=== PATIENT | male | born 1980 | race Caucasian/White ===

== ENCOUNTER 2017-08-08 08:05 | Emergency (ER) | payer SELFPAY ==
[~2017-08-08] VITALS: Ht 188 cm; Wt 114.6 kg
[~2017-08-08 08:05] MED LIST: GABA300C10 PO; ZOLP10TA PO
[2017-08-08 08:07] VITALS: BP 148/80
[2017-08-08] MEDS ORDERED: MELA2.5T PO (08:29)
[2017-08-08] MEDS ORDERED: BUDE10.22 INH (08:30)
[2017-08-08] MEDS ORDERED: TIOT18CA INH (08:30)
[2017-08-08] MEDS ORDERED: ALBU18HF INH (08:32)
[2017-08-08] MEDS ORDERED: methylPREDNISolone SOD SUCC 125 MG/2 ML ONE (09:26)
[2017-08-08] MEDS ORDERED: SODIUM CHLORIDE FLUSH 10ML SYR IVF ONE (09:30)
[2017-08-08] MEDS ORDERED: methylPREDNISolone SOD SUCC 125 MG/2 ML IVP ONE (09:30)
[2017-08-08] MEDS ORDERED: ALBUTEROL/IPRATROPIUM 2.5MG/0.5MG, 3 ML NPPB ONE (09:30)
[2017-08-08] MEDS ORDERED: ALBUTEROL/IPRATROPIUM 2.5MG/0.5MG, 3 ML ONE (09:40)
== END 2017-08-08 11:07 | disposition home or self-care (01) ==
LOC: ED 10:26
DX: J44.1 Chronic obstructive pulmonary disease with (acute) exacerbation (principal); B34.9 Viral infection, unspecified; Z87.891 Personal history of nicotine dependence
CPT/HCPCS: 71010; 93005; 94640; 96374; 99284; J2930; J7620

== ENCOUNTER 2017-11-21 09:12 | Emergency (ER) | payer SELFPAY ==
[~2017-11-21] VITALS: Ht 188 cm; Wt 99.7 kg
[~2017-11-21 09:12] MED LIST changes: +ALBU18HF INH; +BUDE10.22 INH; +MELA2.5T PO; +TIOT18CA INH
[2017-11-21 10:56] VITALS: BP 122/80
== END 2017-11-21 10:59 | disposition home or self-care (01) ==
LOC: ED 10:34
DX: S83.411A Sprain of medial collateral ligament of right knee, initial encounter (principal); Z87.891 Personal history of nicotine dependence; X50.0XXA Overexertion from strenuous movement or load, initial encounter; Y93.89 Activity, other specified; Y92.89 Other specified places as the place of occurrence of the external cause; Y99.8 Other external cause status
CPT/HCPCS: 29530; 99284

== ENCOUNTER 2018-12-13 16:25 | Emergency (ER) | payer MEDICAID ==
[~2018-12-13] VITALS: Ht 188 cm; Wt 111.4 kg
[2018-12-13 16:42] VITALS: BP 146/88
--- NOTE | 2018-12-13 18:03 | NUR ---
Patient/Caregiver given discharge instructions and they have confirmed that they understand the instructions. Patient ambulatory with steady gait.
== END 2018-12-13 18:04 | disposition home or self-care (01) ==
LOC: ED 17:30
DX: S62.346A Nondisplaced fracture of base of fifth metacarpal bone, right hand, initial encounter for closed fracture (principal); J44.9 Chronic obstructive pulmonary disease, unspecified; G62.9 Polyneuropathy, unspecified; W00.0XXA Fall on same level due to ice and snow, initial encounter; Y93.89 Activity, other specified; Y92.410 Unspecified street and highway as the place of occurrence of the external cause; Y99.8 Other external cause status
CPT/HCPCS: 29125; 99283

== ENCOUNTER 2020-08-13 09:50 | Emergency (ER) | payer SELFPAY ==
[~2020-08-13] VITALS: Ht 182.9 cm; Wt 116.0 kg
--- NOTE | 2020-08-13 09:54 | NUR ---
CALLED FOR TRIAGE, NO ANSWER
[2020-08-13] MEDS ORDERED: ALBUTEROL/IPRATROPIUM 2.5MG/0.5MG, 3 ML ONE (10:29)
[2020-08-13] MEDS ORDERED: ALBUTEROL/IPRATROPIUM 2.5MG/0.5MG, 3 ML NPPB SCH (10:30)
[2020-08-13 10:50] LABS: BASOPHILS % (AUTO) 0 % (0-1); EOSINOPHILS % (AUTO) 1 % (1-7); LYMPHOCYTES % (AUTO) 11 % (22-44); MEAN CORPUSCULAR HEMOGLOBIN 29.7 pg (27.5-34.5); MEAN CORPUSCULAR HGB CONC 33.1 g/dL (33.2-36.2); MEAN PLATELET VOLUME 7.5 fL (7.4-10.4); MONOCYTES % (AUTO) 5 % (2-9); NEUTROPHILS % (AUTO) 83 % (42-75); PLATELET COUNT 334 x10^3/uL (130-400); RED BLOOD COUNT 4.99 x10^6/uL (4.38-5.82); RED CELL DISTRIBUTION WIDTH 14.3 % (9.4-14.8)
[2020-08-13 10:57] LABS: ALBUMIN 3.9 g/dL (3.4-5.0); ANION GAP 8 mmol/L (5-15); CHLORIDE 109 mmol/L (98-107); CREATININE 0.78 mg/dL (0.7-1.3)
[2020-08-13] MEDS ORDERED: ALBUTEROL-IPRATROPIUM MDI INH INH SCH (11:00)
[2020-08-13] MEDS ORDERED: ALBUTEROL HFA 90 MCG/SPRAY INH PRN (11:00)
[2020-08-13] MEDS ORDERED: GUAIFENESIN/DM 200-20MG, 10ML UDC PO SCH (11:00)
[2020-08-13 11:01] LABS: TROPONIN I < 0.015 ng/mL (0.000-0.045)
[2020-08-13 11:10] LABS: MD SCAN
[2020-08-13] MEDS ORDERED: GUAIFENESIN/DM 200-20MG, 10ML UDC ONE (11:18)
[2020-08-13 12:01] VITALS: BP 145/78
== END 2020-08-13 12:04 | disposition home or self-care (01) ==
LOC: ED 10:30
DX: J44.1 Chronic obstructive pulmonary disease with (acute) exacerbation (principal); Z20.828 Contact with and (suspected) exposure to other viral communicable diseases; R07.9 Chest pain, unspecified; F17.210 Nicotine dependence, cigarettes, uncomplicated
CPT/HCPCS: 36415; 71045; 80048; 82040; 83605; 83880; 84484; 85025; 85379; 87635; 93005; 94640; 99285; 99406; J7512

== ENCOUNTER 2021-06-10 09:24 | Emergency (ER) | payer MEDICAID ==
[~2021-06-10] VITALS: Ht 188 cm; Wt 113.9 kg
--- NOTE | 2021-06-10 09:35 | NUR ---
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
--- NOTE | 2021-06-10 11:25 | NUR ---
[facility] [employer]: PT TO GO ROOM UPON COMPLETION OF REGISTRATION.
--- NOTE | 2021-06-10 11:33 | NUR ---
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
--- NOTE | 2021-06-10 11:38 | NUR ---
FIRST CONTACT: sore throat, GARAY, body aches and chills with cough. pt has not had a COVID vaccine. PT TO ROOM WITH STEADY GAIT. POSTIONED TO COMFORT IT BED. ATTACHED TO MONITORS. VSS. NADN. KEENAN GHOTRA.
[2021-06-10 12:48] VITALS: BP 113/82
--- NOTE | 2021-06-10 12:57 | NUR ---
Patient/Caregiver given discharge instructions and they have confirmed that they understand the instructions. Patient ambulatory with steady gait. NAD, all questions answered appropriately, denies additional needs at this time. No personal belongings left in room after discharge.
== END 2021-06-10 12:58 | disposition home or self-care (01) ==
LOC: ED 11:27
DX: J44.1 Chronic obstructive pulmonary disease with (acute) exacerbation (principal); Z20.822 Contact with and (suspected) exposure to COVID-19; J06.9 Acute upper respiratory infection, unspecified; R94.31 Abnormal electrocardiogram [ECG] [EKG]
CPT/HCPCS: 71045; 93005; 99285; U0003; U0005

== ENCOUNTER 2021-06-12 17:25 | Emergency (ER) | payer MEDICAID ==
[~2021-06-12] VITALS: Ht 188 cm; Wt 111.5 kg
[2021-06-12] MEDS ORDERED: DEXAMETHASONE 4 MG TABLET PO ONE (20:30)
[2021-06-12] MEDS ORDERED: ACETAMINOPHEN 500 MG TABLET PO ONE (20:30)
[2021-06-12] MEDS ORDERED: DEXAMETHASONE 4 MG TABLET ONE (20:44)
[2021-06-12] MEDS ORDERED: ACETAMINOPHEN 500 MG TABLET ONE (20:44)
[2021-06-12 21:31] VITALS: BP 115/64
[2021-06-12] MEDS: AMOXICILLIN 500 MG CAPSULE PO SCH ×2 (21:37→21:50)
[2021-06-12] MEDS ORDERED: AMOXICILLIN 500 MG CAPSULE ONE (21:38)
== END 2021-06-12 21:51 | disposition home or self-care (01) ==
LOC: ED 19:45
DX: J02.0 Streptococcal pharyngitis (principal); J44.9 Chronic obstructive pulmonary disease, unspecified; F17.210 Nicotine dependence, cigarettes, uncomplicated
CPT/HCPCS: 87880; 99406